=== PATIENT | female | born 1980 | race Caucasian/White ===

== ENCOUNTER 2018-09-13 18:11 | Emergency (ER) | payer SELFPAY ==
--- NOTE | 2018-09-13 18:15 | NUR ---
Attempted to triage, pt was not found in ER waiting room.
== END 2018-09-13 18:23 | disposition left against medical advice (07) ==
LOC: ER 18:15
DX: Z53.21 Procedure and treatment not carried out due to patient leaving prior to being seen by health care provider (principal)